=== PATIENT | female | born 1950 | race Caucasian/White ===

== ENCOUNTER 2020-11-16 12:41 | Outpatient (REF) | payer MEDICARE, MEDICAID, SELFPAY ==
--- NOTE | ~2020-11-16 | XR_ITS ---
EXAMINATION: XR KNEE, LEFT CLINICAL INFORMATION: Pain. COMPARISON: None TECHNIQUE: Four views of the left knee. FINDINGS: Moderate degeneration at the patellofemoral articulation and moderate degeneration in the lateral compartment. Joint line lipping is noted. Mild degeneration of the medial compartment. There is no acute fracture or dislocation. The patella appears well seated on the sunrise image. XR/XR knee LT 4V IMPRESSION: Moderate degenerative changes. No acute finding. Probable small effusion is present.
== END 2020-11-16 12:42 | disposition home or self-care (01) ==
LOC: HO.XRAY 12:41
PROVIDERS: PCP Nurse Practitioner Adult Health; Visit Provider Internal Medicine Rheumatology
DX: M19.90 Unspecified osteoarthritis, unspecified site (principal); M89.49 Other hypertrophic osteoarthropathy, multiple sites
CPT/HCPCS: 73564

== ENCOUNTER 2021-12-27 14:51 | Outpatient (REF) | payer MEDICARE, MEDICAID, SELFPAY ==
--- NOTE | ~2021-12-27 | MM_ITS ---
EXAMINATION: BONE DENSITOMETRY CLINICAL INDICATION: Osteoporosis. COMPARISON: Previous BD dated 11/26/2016 and baseline BD dated 06/03/2000. TECHNIQUE: Using a [employer] DXA System (software version: 13.1) manufactured by [employer], dual-energy x-ray absorptiometry was performed of the lumbar spine and left hip. The images are of good technical quality. Summary results are attached. FINDINGS: AP SPINE L1-L2 (excluding L3 and L4): The data of L1-L4 has been changed to exclude the L3 and L4 vertebral bodies, because degenerative changes at these levels may cause overestimation of lumbar spine density. Current: BMD 1.174 g/cm2, Z-score 1.9, T-score 0.1, normal, 0.1% increase from previous, 3.0% increase from baseline (<5% change is not significant). Prior: BMD 1.173 g/cm2. Baseline (available): 12/08/2007: BMD 1.140 g/cm2. LEFT FEMUR, NECK: Current: BMD 0.748 g/cm2, Z-score -0.2, T-score -2.1, osteopenia. Prior: BMD 0.757 g/cm2. Baseline: BMD 0.950 g/cm2. LEFT FEMUR, TOTAL: Current: BMD 0.464 g/cm2, Z-score -2.6, T-score -4.3, osteoporosis, 40.1% decrease from previous, 42.8% decrease from baseline (<5% change is not significant). Prior: BMD 0.774 g/cm2. Baseline: BMD 0.811 g/cm2. IDENTIFIED RISK FACTORS: Menopause, height loss, low calcium intake, rheumatoid arthritis. HISTORY OF FRACTURE: None listed. MEDICATIONS: Vitamin D. MM/XR DEXA axial skeleton IMPRESSION: 1. DIAGNOSIS: Osteoporosis based on the lowest T-score value of -4.3 in the total femur applying World Health Organization criteria. 2. 10-YEAR FRACTURE RISK PREDICTION, FRAX: According to the guidelines, FRAX calculation should only be performed on patients in the osteopenia bone density category. Therefore, FRAX was not performed on this patient. 3. Treatment Recommendations: NOF guidelines recommend consideration for treatment in postmenopausal women and men age 50 and older presenting with the following: -A hip or vertebral (clinical or morphometric) fracture. -T-score less than or equal to -2.5 at the femoral neck or spine after appropriate evaluation to exclude secondary causes. -Low bone mass at the hip or spine and a 10-year fracture probability by FRAX of greater than or equal to 3% for hip fracture or greater than or equal to 20% for major osteoporotic fracture based on the [place] adapted WHO algorithm. 4. Other Recommendations: All treatment decisions require clinical judgment and consideration of individual patient factors, including patient preferences, comorbidities, previous drug use, risk factors not captured in the FRAX model (e.g. frailty, falls, vitamin D deficiency, increased bone turnover, interval significant decline in bone density) and possible under or overestimation of fracture risk by FRAX. Additional medical evaluation for secondary cause of low bone mineral density may be appropriate. FUTURE SCAN RECOMMENDATION: People with diagnosed cases of osteoporosis or at high risk for fracture should have regular bone mineral density tests. For patients eligible for Medicare, routine testing is allowed once every 2 years. The testing frequency can be increased to one year for patients who have rapidly progressing disease, those who are receiving or discontinuing medical therapy to restore bone mass, or have additional risk factors.
== END 2021-12-27 14:52 | disposition home or self-care (01) ==
LOC: HO.MAMMO 14:51
PROVIDERS: Visit Provider Internal Medicine Rheumatology
DX: Z13.820 Encounter for screening for osteoporosis (principal); Z78.0 Asymptomatic menopausal state; M85.80 Other specified disorders of bone density and structure, unspecified site
CPT/HCPCS: 77080

== ENCOUNTER 2023-03-28 10:42 | Day surgery (SDC) | payer MEDICARE, MEDICAID, SELFPAY ==
--- NOTE | 2023-03-27 11:06 | HO.ANESPROP2 ---
Documented by User: Yumi Ulloa NP 03/27/23 11:07 HPI - Anesthesia Eval Consult details Narrative: 72yo F for Colonoscopy PMFSH Past Medical History Medical History Arthritis Thyroid disease GERD (gastroesophageal reflux disease) HTN (hypertension) Surgical History Surgical History History of tonsillectomy Hx of arthroscopic knee surgery H/O colonoscopy Social History Social History Patient Tobacco Use Status: Former Tobacco user Tobacco use type: Cigarette Meds Allergies Allergy/AdvReac Type Severity Reaction Status Date / Time Penicillins Allergy Mild HIVES Unverified 02/03/20 14:40 Sulfa (Sulfonamide Allergy Mild HIVES Unverified 02/03/20 14:40 Antibiotics) [Sulfa (Sulfonamides)] erythromycin base AdvReac Severe SEVERE Unverified 02/03/20 14:40 [Erythromycin Base] ABDOMINAL CRAMPS clindamycin [Clindamycin] AdvReac Mild DEVELOPED Unverified 02/03/20 14:40 C-DIFF Bactrim Allergy Mild Hives Uncoded 03/26/23 14:16 Home Medications Medication Instructions Recorded Confirmed Last Taken Type amlodipine 2.5 mg tablet 2.5 mg PO DAILY 03/26/23 03/26/23 03/28/23 History ergocalciferol (vitamin D2) 1,250 1,250 mcg PO QWEEK 03/26/23 03/26/23 Unknown History mcg (50,000 unit) capsule famotidine 20 mg tablet 20 mg PO BID 03/26/23 03/26/23 Unknown History fluticasone propionate 50 1 spray intranasal BID 03/26/23 03/26/23 Unknown History mcg/actuation nasal spray,suspension hydroxychloroquine 200 mg tablet mg PO 03/26/23 Unknown History levothyroxine 100 mcg tablet 100 mcg PO DAILY 03/26/23 03/26/23 Unknown History mirtazapine 30 mg tablet 30 mg PO BEDTIME 03/26/23 03/26/23 Unknown History olmesartan 40 mg tablet 40 mg PO DAILY 03/26/23 03/26/23 03/28/23 History tramadol 50 mg tablet 50 mg PO TID PRN Pain 03/26/23 03/26/23 Unknown History dicyclomine 20 mg tablet 20 mg PO TID 03/27/23 03/27/23 Unknown History ferrous sulfate 27 mg iron tablet 27 mg PO 3XW 03/27/23 03/27/23 Unknown History hydrocodone 5 mg-acetaminophen 325 1 tab PO Q4H PRN pain 03/27/23 03/27/23 Unknown History mg tablet ranitidine HCl 150 mg capsule 150 mg PO BID 03/27/23 03/27/23 Unknown History Exam Exam Date and Time: March 27, 2023 110 Assessment and Plan Assessment Anesthesia Assessment: Chart Reviewed Documented by User: Dary Montez MD 03/28/23 11:35 PMFSH Past Medical History Medical History Arthritis Thyroid disease GERD (gastroesophageal reflux disease) HTN (hypertension) Surgical History Surgical History History of tonsillectomy Hx of arthroscopic knee surgery H/O colonoscopy History of Problems with Anesthesia: No Social History Social History Patient Tobacco Use Status: Former Tobacco user Tobacco use type: Cigarette Meds Allergies Allergy/AdvReac Type Severity Reaction Status Date / Time Penicillins Allergy Mild HIVES Unverified 02/03/20 14:40 Sulfa (Sulfonamide Allergy Mild HIVES Unverified 02/03/20 14:40 Antibiotics) [Sulfa (Sulfonamides)] erythromycin base AdvReac Severe SEVERE Unverified 02/03/20 14:40 [Erythromycin Base] ABDOMINAL CRAMPS clindamycin [Clindamycin] AdvReac Mild DEVELOPED Unverified 02/03/20 14:40 C-DIFF Bactrim Allergy Mild Hives Uncoded 03/26/23 14:16 Home Medications Medication Instructions Recorded Confirmed Last Taken Type amlodipine 2.5 mg tablet 2.5 mg PO DAILY 03/26/23 03/26/23 03/28/23 History ergocalciferol (vitamin D2) 1,250 1,250 mcg PO QWEEK 03/26/23 03/26/23 Unknown History mcg (50,000 unit) capsule famotidine 20 mg tablet 20 mg PO BID 03/26/23 03/26/23 Unknown History fluticasone propionate 50 1 spray intranasal BID 03/26/23 03/26/23 Unknown History mcg/actuation nasal spray,suspension hydroxychloroquine 200 mg tablet mg PO 03/26/23 Unknown History levothyroxine 100 mcg tablet 100 mcg PO DAILY 03/26/23 03/26/23 Unknown History mirtazapine 30 mg tablet 30 mg PO BEDTIME 03/26/23 03/26/23 Unknown History olmesartan 40 mg tablet 40 mg PO DAILY 03/26/23 03/26/23 03/28/23 History tramadol 50 mg tablet 50 mg PO TID PRN Pain 03/26/23 03/26/23 Unknown History dicyclomine 20 mg tablet 20 mg PO TID 03/27/23 03/27/23 Unknown History ferrous sulfate 27 mg iron tablet 27 mg PO 3XW 03/27/23 03/27/23 Unknown History hydrocodone 5 mg-acetaminophen 325 1 tab PO Q4H PRN pain 03/27/23 03/27/23 Unknown History mg tablet ranitidine HCl 150 mg capsule 150 mg PO BID 03/27/23 03/27/23 Unknown History Exam Airway Mallampati Class: III (small mouth) TM Dist: >3cm Neck ROM: Full Partial: Upper Loose/Missing/Broken Teeth: Yes and Upper Heart: RRR Lungs: CTA Assessment and Plan Assessment Anesthesia Assessment: Anesthesia Plan Discussed Final Anesthetic Review History of Problems with Anesthesia: No NPO: Yes ASA Class: II Final Preanesthetic Review: Meds/Allgs Chart Reviewed, Consent Obtained/Reviewed and Anes Risks/Benef Reviewed Patient Risk: Low Procedure Risk: Low Anesthetic Plan Anesthetic Plan: MAC: Disposition: Standard PACU
[2023-03-28 11:28] VITALS: BMI 22.0
[2023-03-28 11:31] VITALS: BP 110/89; PULSE 87; RESP 16; TEMP 37.2; O2SAT 95
--- NOTE | 2023-03-28 11:32 | MHC.SHP ---
Pre-Procedural Eval Section A Date of Service: 03/28/23 The patient is an INPATIENT: No Changes since office visit: No Cold of Flu in the past 2 weeks, No New Medical Problems, No Changes in Medication and No Patient answered all questions The History & Physical has been completed within 30 days and I have reviewed it.: Yes Section B Chief Complaint: Diarrhea, unspecified Allergies: Allergies Allergy/AdvReac Type Severity Reaction Status Date / Time Penicillins Allergy Mild HIVES Unverified 02/03/20 14:40 Sulfa (Sulfonamide Allergy Mild HIVES Unverified 02/03/20 14:40 Antibiotics) [Sulfa (Sulfonamides)] erythromycin base AdvReac Severe SEVERE Unverified 02/03/20 14:40 [Erythromycin Base] ABDOMINAL CRAMPS clindamycin [Clindamycin] AdvReac Mild DEVELOPED Unverified 02/03/20 14:40 C-DIFF Bactrim Allergy Mild Hives Uncoded 03/26/23 14:16 Plan I have reviewed the history and physical and performed a pertinent physical examination on my patient. No changes have occurred unless specified. Time Spent With Patient Time: Total time managing care of this patient today ____ minutes.
[2023-03-28] MEDS: Lactated Ringers 1,000 ML 100 ML IVCONT (11:53)
--- NOTE | 2023-03-28 12:24 | PM.OP ---
Brief Operative Note Date of Service: 03/28/23 Pre-op diagnosis: diarrhea Post-op diagnosis: same Surgeon: Everton Benson MD Anesthesia: MAC Was an Information Security Consultant used for this Procedure?: No Estimated blood loss (mL): 2 Condition: stable Disposition: PACU
[2023-03-28 12:25] VITALS: BP 89/45; PULSE 73; RESP 18; TEMP 37.2; O2SAT 98
--- NOTE | 2023-03-28 12:40 | OP_ITS ---
DATE OF SERVICE: 03/28/2023 SURGEON: Everton Benson MD INDICATIONS: Personal history of colon polyps and diarrhea. PREOPERATIVE DIAGNOSIS: POSTOPERATIVE DIAGNOSIS: PROCEDURE PERFORMED: Colonoscopy to the terminal ileum with biopsy and snare polypectomy. ESTIMATED BLOOD LOSS: COMPLICATIONS: ANESTHESIA: Monitored anesthesia care. ASSISTANTS: SPECIMENS: DESCRIPTION OF PROCEDURE: History and physical performed. The risks and benefits of the procedure explained to the patient. Informed consent was obtained. The patient was placed in a left lateral decubitus position. A digital rectal exam was performed and was found to be normal. The Olympus pediatric video colonoscope was introduced into the rectum and advanced to the cecum. The cecum was identified by transillumination, palpation, and identification of ileocecal valve. Examination was performed. The scope was removed. She tolerated the procedure well and was taken to the recovery room in stable condition. FINDINGS: The terminal ileum was examined and appeared normal. This was biopsied. The visualized colonic mucosa was within normal limits without evidence of masses or ulcers. There was no sign of colitis. Random biopsies were obtained from the right colon and sigmoid because of the patient's history of diarrhea. A 6 mm polyp at 40 cm was removed with a cold snare and recovered via suction. There was moderate sigmoid diverticulosis. Retroflexed examination showed some moderate-sized internal hemorrhoids. IMPRESSION: 1. Colon polyps. 2. Diarrhea. RECOMMENDATION: Follow up the biopsy results. MD PIYUSH Kessler/LALA / [id number]
== END 2023-03-28 13:25 | disposition home or self-care (01) ==
PROVIDERS: PCP Nurse Practitioner Adult Health; Visit Provider Internal Medicine Gastroenterology
PROC: 0DJD8ZZ Inspection of Lower Intestinal Tract, Via Natural or Artificial Opening Endoscopic (ICD-10-PCS; CPT 45378; principal; 2023-03-28 12:00)
DX: R19.7 Diarrhea, unspecified (principal); K62.5 Hemorrhage of anus and rectum; R15.2 Fecal urgency; Z86.010 Personal history of colon polyps; K63.5 Polyp of colon; I10 Essential (primary) hypertension; E78.00 Pure hypercholesterolemia, unspecified; E03.9 Hypothyroidism, unspecified; M19.90 Unspecified osteoarthritis, unspecified site; Z79.899 Other long term (current) drug therapy; Z88.0 Allergy status to penicillin; Z88.2 Allergy status to sulfonamides; Z88.1 Allergy status to other antibiotic agents; Z87.891 Personal history of nicotine dependence
CPT/HCPCS: 45385; 45380; 88305; J2371; J2704

== ENCOUNTER 2024-12-30 13:19 | Outpatient (REF) | payer MEDICARE, MEDICAID, SELFPAY ==
--- NOTE | ~2024-12-30 | MM_ITS ---
EXAMINATION: DXA BONE DENSITY AXIAL HISTORY: OSTEOPOROSIS TECHNIQUE: [employer] Dual energy absorptiometry (DEXA) of the lumbar spine, total left hip, and femoral neck was performed. COMPARISON: Comparison is made with the prior examination dated 12/27/2021. FINDINGS: The bone mineral density of the lumbar spine is 1.218 g/cm2, corresponding to a T-score of 0.4, and a Z-score of 2.3. This is indicative of normal bone mineral density. This represents a BMD change of 3.7% compared to the prior exam. This is not statistically significant. The bone mineral density of the left total hip is 0.727 g/cm2, corresponding to a T-score of -2.2, and a Z-score of -0.3. This is indicative of osteopenia. This represents a BMD change of 56.7% compared to the prior exam. This is statistically significant. The bone mineral density of the left femoral neck is 1.128 g/cm2, corresponding to a T-score of 0.4, and a Z-score of 2.3. This is indicative of normal bone mineral density. This represents a BMD change of 3.7% compared to the prior exam. MM/XR DEXA axial skeleton IMPRESSION: Based on bone mineral density, and according to World Health Organization (WHO) criteria, the diagnosis is consistent with osteopenia. Statistically, 68% of repeat scans fall within 1 SD (+/- 0.010 g/cm2 for AP spine L1-L4) and 1 SD (+/- 0.012 g/cm2 for femur total) FRAX is a trademark of the [employer] [place] [employer], a World Health Organization (WHO) Collaborating Center. Electronically signed by: Cuong Ca MD 12/30/2024 02:13 PM EDT
--- OUTSIDE RECORDS SUMMARY | 2024-12-30 14:12 | XMS_ITS | Clinical Summary ---
Author Organization [facility] Address [address] [place] [address] Care Team Providers Care Grievance Coordinator Name Role Phone Unavailable Primary Care Provider Unavailabl e Source Comments PLEASE NOTE, if this patient is a minor, it may be UNLAWFUL to discuss sensitive information that is contained in these records (such as FAMILY PLANNING, MENTAL HEALTH or SUBSTANCE ABUSE) with the minor patient's parent or other person without the patient's specific authorization.[facility] Allergies Active Allergy Reactions Criticality Noted Date Comments Amoxicillin 05/30/2021 Clindamycin 05/30/2021 Penicillins 05/30/2021 Sulfa (Sulfonamide Antibiotics) 05/19 Medications No known medications Active Problems Problem Noted Date Diagnosed Date Arthritis 11/26/2021 High blood pressure 11/26/2021 Encounters Date Type Department Care Team Description 12/24/2024 11:00 AM EDT Office Visit [facility] [address] [place] [phone] Janette Wilson DDS from Last 3 Months Social History Tobacco Use Types Packs/Day Years Used Date Smoking Tobacco: Never Passive Smoke Exposure: Never Smokeless Tobacco: Never Tobacco Cessation:Counseling Given: Not Answered Social Connections Answer Date Recorded Connectedness 0 01/29/2024 Financial Resource Strain Answer Date R ecorded Financial Resource Strain 0 2021 Stress Answer Date Recorded Stress 0 10/11/2021 Physical Activity Answer Date Recorded Physical Activity 0 10/11/2021 Food Insecurity Answer Date Recorded Food 0 02/12/2024 Transportation Needs Answer Date Record ed Transportation 0 10/11/2021 Housing Stability Answer Date Recorded Housing 0 10/11/2021 Safety and Environment Answer Date Jc rded Safety 0 10/11/2021 Utilities Answer Date Recorded Utilities 0 10/11/2021 Employment Answer Date Recorded Stress 0 01/29/2024 Comments Unknown Sex and Gender Information Value Date Recorded Sex Assigned at Not on file Legal Sex Female 8:48 AM PDT Gender Identity Female 12/27/2024 7:41 AM PDT Sexual Orientation Straight 12/27/2024 7: 41 AM PDT Last Filed Vital Signs Vital Sign Reading Time Taken Comments Blood Pressure 125/94 12/24/2024 10:59 AM EDT Pulse 86 12/24/2024 10:59 AM EDT Temperature - - Respiratory Rate - - Oxygen Saturation - - Inhaled Oxygen Concentration - - Weight - - Height - - Body Mass Index - - Plan of Treatment Upcoming Encounters Date Type Department Care Team (Late st Contact Info) Description 12/30/2024 3:40 PM EDT Office Visit [facility] [address] [place] [phone] Janette Wilson, DDS [address] [place] [address] 01/06/2025 1:00 PM EDT Office Visit [facility] [address] [place] [phone] Fifi Stroud [address] [place] [address] Health Maintenance Due Date Last Done Comments Dental FMX/Pano 1950 Hepatitis C Screening 1950 Imm-DTaP/Tdap/Td (1 - Tdap) 1967 Imm-Zoster, Recombinant (1 of 2) 1998 Bone Density Screening 2013 Falls Prevention 2013 Imm-Pneumococcal 50+ (2 of 2 - PCV) 06/19/2016 06/19/2015 Imm-RSV (adult) (1 - 1-dose 75+ series) 2023 [id number] ( - season) 2024 06/02/2021, 10/04/2020, 09/06/2020 Alcohol and Drug Screen 05/19/2024 Depression Annual Screen 05/19/2024 Dental Perio Charting 07/05/2024 07/03/2023, 023 Tobacco Screening 12/31/2024 01/01/2024 Dental BW 01/02/2025 01/01/2024 Dental Examination 01/02/2025 01/01/2024, 0 07/03/2023, 09/23/2022 Dental Prophy 01/02/2025 01/01/2024, 06/19, 09/23/2022, Additional history exists Imm-Influenza (#1) 2025 02/27/2017, 04/05/2016 Procedures Procedure Name Priority Date/Time Associated Diagnosis Comments BITEWINGS - FOUR RADIOGRAPHIC IMAGES Routine 01/01/2024 11:00 AM EDT Caries of enamel (incipient) Caries Encounter for dental examination and cleaning with abnormal findings PROPHYLAXIS - ADULT Routine 01/01/2024 1 1:00 AM EDT Caries of enamel (incipient) Caries Encounter for dental examination and cleaning with abnormal findings PERIODIC ORAL EVALUATION ESTABLISHED PATIENT Routine 01/01/2024 11:00 AM EDT Caries of enamel (incipient) Caries Encounter for dental examination and cleaning with abnormal findings COMP PERIODONTAL EVALUATION - NEW/EST PATIENT Routine 07/03/2023 2:20 PM EST Encounter for dental examination from Last 3 Months or Most Recently Relevant to Health Maintenance Insurance [employer] NET DENTAL
--- OUTSIDE RECORDS SUMMARY | 2024-12-30 14:12 | XMS_ITS | Clinical Summary ---
Author Organization [facility] Address [address] [place] [id number] Phone Care Team Providers Care Web Marketing Strategist Name Role Phone Jazmine Sunshine NP Primary Care Provider + Magy Hawk MD Unavailable [phone] Allergies Active Allergy Reactions Criticality Noted Date Comments Clindamycin Hcl 02/27/2017 Other reaction(s): Unknown Erythromycin 02/27/2017 Other reaction(s): Unknown Escitalopram Oxalate Diarrhea 12/10/2019 Penicillin G Sodium 02/27/2017 Other reaction(s): Unknown Sulfa (Sulfonamide Antibiotics) 02/27/2017 Other reaction(s): Unknown Sertraline Diarrhea 12/10/2019 Medications levothyroxine (SYNTHROID, LEVOTHROID) 100 MCG tablet Take 100 mcg by mouth daily. Active famotidine (PEPCID) 20 MG tabletIndications :duodenal ulcer Take 20 mg by mouth daily. Indications: an ulcer of the duodenum Active ferrous gluconate 256 mg (28 mg elemental) Tab Take 256 mg by mouth daily with breakfast. Active traMADoL (ULTRAM) 50 mg tablet Take 50 mg by mouth every 8 (eight) hours as needed. Active MIRTAZAPINE ORAL Take 45 mg by mouth nightly at bedtime. Active amLODIPine (NORVASC) 5 MG tablet Take 5 mg by mouth daily. 3 Active cholecalciferol (VITAMIN D3) 25 MCG (1,000 unit) tablet Take 3,000 Units by mouth daily. Active calcium carb/vitamin D3/vit K1 (CALCIUM SOFT CHEW ORAL) Take by mouth daily. Active hydroxychloroquin e (PLAQUENIL) 200 mg tabletIndications :Inflammatory arthritis TAKE 1 TABLET BY MOUTH EVERY DAY IN THE MORNING AND HALF A TABLET IN THE AFTERNOON DIRECTED 135 tablet 3 5 Active PROLIA 60 mg/mL Syrg subcutaneous syringeIndication s:Age-related osteoporosis without current pathological fracture INJECT 1 SYRINGE UNDER THE SKIN ONCE EVERY 6 MONTHS 1 mL 1 5 Active Active Problems Problem Noted Date Diagnosed Date Skin rash 10/28/2024 Assessment & Plan (10/28/2024 1:15 PM EDT): Apply moisturizer after taking shower and if not better consider formal dermatologic checkup Hematoma of right hand 09/10/2023 Assessment & Plan (09/10/2023 1:43 PM EDT): Procedure: After an informed oral consent, under sterile conditions using Ethyl chloride spray for local anesthesia I have aspirated a drop of blood from Right carpus dorsal hematoma uneventfully. Details of post-procedure care were explained to the patient in the office and given in writing. Provider: Magy Hawk MD Patient: Wendy Lopez : 1950 Date: 09/10/2023 Hypomagnesemia 09/10/2023 Assessment & Plan (10/28/2024 1:14 PM EDT): She is monitoring it periodically and makes sure to provide enough magnesium rich food products. Assessment & Plan (01/12/2024 11:18 AM EDT): She is monitoring it periodically and makes sure to provide enough magnesium rich food products. Assessment & Plan (09/13/2023 8:56 PM EDT): She is thankful for my attention to low serum magnesium in April 2023 that saved my life . She is monitoring it periodically and makes sure to provide enough magnesium rich food products-see details in instruction sheet with today's date. Varicose veins of both legs with edema 3 Assessment & Plan (10/28/2024 12:02 PM EDT): I reviewed with her the proper way of putting supporting stockings on first thing in the morning before taking legs off the bed and sent prescription for another pair. Assessment & Plan (01/08/2024 1:08 PM EDT): I reviewed with her the proper way of putting supporting stockings on first thing in the morning before taking legs off the bed and sent prescription for another pair. Assessment & Plan (09/10/2023 1:13 PM EDT): I reviewed with her the proper way of putting supporting stockings on first thing in the morning before taking legs off the bed and sent prescription for another pair. Assessment & Plan (05/08/2023 11:39 AM EST): I reviewed with her the proper way of putting supporting stockings on first thing in the morning before taking legs off the bed and sent prescription for another pair. Age-related osteoporosis wit hout current pathological fracture 08/21/2022 Assessment & Plan (10/28/2024 1:14 PM EDT): Due to documented osteoporosis with left total femur T score -4.3 she would benefit from bone preventing therapy in addition to proper calcium and vitamin D supplementation and daily weightbearing exercises. I provided her with pamphlet on Prolia administered subcutaneously every 6 months in view of her heartburn requiring Pepcid twice daily. She found out that her insurance covers only 80% of the cost for Prolia and she could not afford the remaining 20% of the cost. She got financial assistance from pharmaceutical [employer] producing Prolia as suggested by one of her friends and received her 1st subcutaneous 60 mg Prolia dose on prior visit on 10/14/2023 uneventfully. She got 2nd every 6 months subcutaneous Prolia dose on 04/28/2024 by the nurse uneventfully. Today she is ready for the 3rd every 6 months Prolia dose: Procedure: After an informed oral consent, under sterile I have injected 60 mg Prolia SUBCUTANEOUSLY into LEFT ARM uneventfully. Details of post-procedure care were explained to the patient in the office and given in writing. Provider: Magy Hawk MD Patient: Wendy Lopez : 1950 Date: 10/28/2024 PATIENT OWN MEDICATION Assessment & Plan (05/28/2024 11:07 AM EST): Due to documented osteoporosis with left total femur T score -4.3 she would benefit from bone preventing therapy in addition to proper calcium and vitamin D supplementation and daily weightbearing exercises. I provided her with pamphlet on Prolia administered subcutaneously every 6 months in view of her heartburn requiring Pepcid twice daily. She found out that her insurance covers only 80% of the cost for Prolia and she could not afford the remaining 20% of the cost. She got financial assistance from [employer] producing Prolia as suggested by one of her friends and received her 1st subcutaneous 60 mg Prolia dose on prior visit on 10/14/2023 uneventfully. She got 2nd every 6 months subcutaneous Prolia dose on 04/28/2024 by the nurse uneventfully. Assessment & Plan (01/12/2024 11:17 AM EDT): Due to documented osteoporosis with left total femur T score -4.3 she would benefit from bone preventing therapy in addition to proper calcium and vitamin D supplementation and daily weightbearing exercises. I provided her with pamphlet on Prolia administered subcutaneously every 6 months in view of her heartburn requiring Pepcid twice daily. She found out that her insurance covers only 80% of the cost for Prolia and she could not afford the remaining 20% of the cost. She got financial assistance from [employer] producing Prolia as suggested by one of her friends and received her 1st subcutaneous 60 mg Prolia dose on prior visit on 10/14/2023 uneventfully. She is due for the 2nd every 6 months subcutaneous Prolia dose on 04/16/2024. Assessment & Plan (09/13/2023 8:54 PM EDT): Due to documented osteoporosis with left total femur T score -4.3 she would benefit from bone preventing therapy in addition to proper calcium and vitamin D supplementation and daily weightbearing exercises. I provided her with pamphlet on Prolia administered subcutaneously every 6 months in view of her heartburn requiring Pepcid twice daily. She found out that her insurance covers only 80% of the cost for Prolia and she could not afford the remaining 20% of the cost. Today she requested another Rx of Prolia hoping to get financial assistance from [employer] producing Prolia as suggested by one of her friends. Assessment & Plan (05/08/2023 11:42 AM EST): Due to documented osteoporosis with left total femur T score -4.3 she would benefit from bone preventing therapy in addition to proper calcium and vitamin D supplementation and daily weightbearing exercises. I provided her with pamphlet on Prolia administered subcutaneously every 6 months in view of her heartburn requiring Pepcid twice daily. She found out that her insurance covers only 80% of the cost for Prolia and she could not afford the remaining 20% of the cost. I again provided her with an alternative of infused IV Reclast (zoledronic acid) every 12 months to consider again today as she still hesitates realizing that the longer she waits the week or the bones are and greater risk of nontraumatic/spontaneous bony fractures. Assessment & Plan (12/26/2022 11:53 AM EDT): Due to documented osteoporosis with left total femur T score -4.3 she would benefit from bone preventing therapy in addition to proper calcium and vitamin D supplementation and daily weightbearing exercises. I provided her with pamphlet on Prolia administered subcutaneously every 6 months in view of her heartburn requiring Pepcid twice daily. She found out that her insurance covers only 80% of the cost for Prolia and she could not afford the remaining 20% of the cost. At today's visit I provided her with an alternative of infused IV Reclast (zoledronic acid) every 12 months to consider -see details in patient instructions regarding possible side effects on it that we reviewed briefly in the office today. Assessment & Plan (09/08/2022 2:41 PM EDT): Due to documented osteoporosis with left total femur T score -4.3 she would benefit from bone preventing therapy in addition to proper calcium and vitamin D supplementation and daily weightbearing exercises. I provided her with pamphlet on Prolia administered subcutaneously every 6 months in view of her heartburn requiring Pepcid twice daily. Gastroesophageal reflux dise ase with esophagitis without hemorrhage 05/31/2021 Assessment & Plan (10/28/2024 11:43 AM EDT): Avoid late, large, spicy meals. Keep headboard elevated at 45 angle for nighttime. Continue Pepcid twice daily Assessment & Plan (05/28/2024 10:42 AM EST): Avoid late, large, spicy meals. Keep headboard elevated at 45 angle for nighttime. Continue Pepcid twice daily Assessment & Plan (01/08/2024 1:08 PM EDT): Avoid late, large, spicy meals. Keep headboard elevated at 45 angle for nighttime. Continue Pepcid twice daily Assessment & Plan (09/10/2023 1:02 PM EDT): Avoid late, large, spicy meals. Keep headboard elevated at 45 angle for nighttime. Continue Pepcid twice daily Assessment & Plan (05/08/2023 11:40 AM EST): Avoid late, large, spicy meals. Keep headboard elevated at 45 angle for nighttime. Continue Pepcid twice daily Assessment & Plan (12/26/2022 11:52 AM EDT): Avoid late, large, spicy meals. Keep headboard elevated at 45 angle for nighttime. Carefully continue Pepcid 20 mg twice daily as prescribed. Assessment & Plan (09/08/2022 2:41 PM EDT): Avoid late, large, spicy meals. Keep headboard elevated at 45 angle for nighttime. Carefully continue Pepcid 20 mg twice daily. Assessment & Plan (01/03/2022 12:11 PM EDT): Avoid late, large, spicy meals. Keep headboard elevated at 45 angle for nighttime. Carefully continue Pepcid 20 mg twice daily as prescribed. Assessment & Plan (09/09/2021 5:15 PM EDT): Avoid late, large, spicy meals. Keep headboard elevated at 45 angle for nighttime. Carefully continue Pepcid 20 mg twice daily as prescribed. Assessment & Plan (05/31/2021 11:28 AM EST): Avoid late, large, spicy meals. Keep headboard elevated at 45 angle for nighttime. Primary osteoarthritis of left knee 12/01/2020 Assessment & Plan (02/02/2021 1:16 PM EDT): Procedure: After an informed oral consent, under sterile conditions using Ethyl chloride spray for local anesthesia I have injected 16 mg Synvisc into Left knee from infero- mediall approach uneventfully. Details of post-procedure care were explained to the patient in the office and given in writing. Provider: Magy Hawk MD Patient: Wendy Lopez : 1950 Date: 02/02/2021 OFFICE SUPPLY Assessment & Plan (02/04/2021 5:39 PM EDT): Procedure: After an informed oral consent, under sterile conditions using Ethyl chloride spray for local anesthesia I have injected 16 mg Synvisc into Left knee from lateral approach uneventfully. Details of post-procedure care were explained to the patient in the office and given in writing. Provider: Magy Hawk MD Patient: Wendy Lopez : 1950 Date: 01/26/2021 OFFICE SUPPLY Assessment & Plan (01/19/2021 4:21 PM EDT): Procedure: After an informed oral consent, under sterile conditions using Ethyl chloride spray for local anesthesia I have injected 1st vial of 16 mg Synvisc into Left knee from medial approach uneventfully. Details of post-procedure care were explained to the patient in the office and given in writing. Provider: Magy Hawk MD Patient: Wendy Lopez : 1950 Date: 01/19/2021 Assessment & Plan (12/05/2020 10:38 AM EDT): Joint protection, energy conservation. Gentle, regular exercise routine. Avoid falls, injuries, overuse. Keep body weight in ideal range for her height. She may benefit from topical cream such as Arnica, Biofreeze, Aspercreme versus medicated patches such as salonpas, icy hot patch 2-3 times daily and if necessary at bedtime x 3 weeks. On her request I am putting prescription for Synvisc that worked great for her right knee in the past. Advice given about COVID-19 virus infection 03/20 Assessment & Plan (08/29/2020 3:38 PM EDT): I reviewed with her need for ongoing social distancing, wearing facial mask and diligent hand hygiene. I have encouraged her to schedule COVID-19 vaccine that appears safe and highly efficacious in preventing COVID-19 infection and its complications. I have reassured her that based on her history I do not see contraindications to get COVID-19 vaccine. Assessment & Plan (04/14/2020 10:34 AM EST): Continue social distancing, wearing facial mask and diligent hand hygiene. I explained to Wendy crucial role of yearly vaccination against influenza this year comparing to other years due to possible concomitant infection with COVID-19 if not protected by available vaccine. Long-term use of Plaquenil 10/03/2017 Assessment & Plan (10/28/2024 1:11 PM EDT): Daily sun protection. Regular eye checkups as scheduled-she has signed medical records release of Retinologist evaluation by Dr. Bradford. Ophthalmology checkup from 07/23/[address] Ruiz free of Plaquenil toxicity. Assessment & Plan (05/28/2024 10:42 AM EST): Daily sun protection. Regular eye checkups as scheduled-she has signed medical records release of most recent evaluation in August 2023. Assessment & Plan (01/08/2024 1:08 PM EDT): Daily sun protection. Regular eye checkups as scheduled-she has signed medical records release of most recent evaluation in August 2023. Assessment & Plan (09/13/2023 8:52 PM EDT): Daily sun protection. Regular eye checkups as scheduled-she has signed medical records release of most recent evaluation in August 2023. Assessment & Plan (05/08/2023 11:40 AM EST): Daily sun protection. Regular eye checkups as scheduled-she is due now in August 2023.. Assessment & Plan (12/26/2022 11:00 AM EDT): Daily sun protection. Regular eye checkups as scheduled. Assessment & Plan (08/21/2022 3:42 PM EDT): Daily sun protection. Regular eye checkups as scheduled. Assessment & Plan (01/03/2022 12:11 PM EDT): Daily sun protection. Regular eye checkups as scheduled. Assessment & Plan (08/30/2021 11:58 AM EDT): Daily sun protection. Regular eye checkups as scheduled. Assessment & Plan (05/31/2021 11:28 AM EST): Daily sun protection. Regular eye checkups as scheduled. Assessment & Plan (11/16/2020 11:23 AM EDT): Daily sun protection. Regular eye checkups as scheduled. Assessment & Plan (08/17/2020 2:50 PM EDT): Daily sun protection. Regular eye checkups as scheduled. Assessment & Plan (04/06/2020 1:47 PM EST): Daily sun protection. Regular eye checkups as scheduled. Assessment & Plan (12/10/2019 2:22 PM EDT): Daily sun protection. Regular eye checkups as scheduled. Assessment & Plan (07/16/2019 4:06 PM EST): Daily sun protection. Regular eye checkups as scheduled. Assessment & Plan (09/05/2018 10:18 PM EDT): Daily sun protection. Regular eye checkups as scheduled. Inflammatory arthritis 05/30/2017 Assessment & Plan (10/28/2024 11:43 AM EDT): Clinically and laboratory [facility] she appears stable. Based on her current weight 60 kg she is ok to carefully continue Plaquenil 300 mg daily (60 x 5 mg/ir=837 mg/day). Continue proper hydration. Well-balanced nutritionally diet. Gentle, regular exercise routine as tolerated. Avoid sick contacts, falls, injuries, overuse. Get labs prior to next visit - standing orders in [facility]. Assessment & Plan (05/28/2024 10:41 AM EST): Clinically and laboratory [facility] she appears stable. Based on her current weight 60 kg she is ok to carefully continue Plaquenil 300 mg daily (60 x 5 mg/wg=621 mg/day). Continue proper hydration. Well-balanced nutritionally diet. Gentle, regular exercise routine as tolerated. Avoid sick contacts, falls, injuries, overuse. Get labs prior to next visit - standing orders in [facility]. Assessment & Plan (01/12/2024 11:15 AM EDT): Clinically and laboratory [facility] she appears stable. Based on her current weight 60 kg she is ok to carefully continue Plaquenil 300 mg daily (60 x 5 mg/en=619 mg/day). Continue proper hydration. Well-balanced nutritionally diet. Gentle, regular exercise routine as tolerated. Avoid sick contacts, falls, injuries, overuse. Get labs prior to next visit - standing orders in [facility]. Assessment & Plan (09/13/2023 8:51 PM EDT): Clinically and laboratory [facility] she appears stable. Based on her current weight 59 kg she is ok to carefully continue Plaquenil 300 mg daily (59 x 5 mg/kg-295/day. Continue proper hydration. Well-balanced nutritionally diet. Gentle, regular exercise routine as tolerated. Avoid sick contacts, falls, injuries, overuse. Get labs prior to next visit in mths-standing orders in [facility]. Call if worse or with questions On her request I agreed to aspirate a small lump on Right carpal dorsum: Procedure: After an informed oral consent, under sterile conditions using Ethyl chloride spray for local anesthesia I have aspirated a drop of blood from Right carpus dorsal hematoma uneventfully. Details of post-procedure care were explained to the patient in the office and given in writing. Provider: Magy Hawk MD Patient: Wendy Lopez : 1950 Date: 09/10/2023 Assessment & Plan (05/08/2023 11:01 AM EST): Ok to carefully continue Plaquenil 300 mg daily . Proper hydration. Well-balanced nutritionally diet. Gentle, regular exercise routine as tolerated. Avoid sick contacts, falls, injuries, overuse. Get labs prior to next visit in 4 mths-standing orders in [facility]. Call if worse or with questions Assessment & Plan (12/26/2022 10:59 AM EDT): Ok to carefully continue Plaquenil 300 mg daily . Proper hydration. Well-balanced nutritionally diet. Gentle, regular exercise routine as tolerated. Avoid sick contacts, falls, injuries, overuse. Get labs prior to next visit in 4 mths-standing orders in [facility]. Call if worse or with questions Assessment & Plan (09/08/2022 2:39 PM EDT): Ok to carefully continue Plaquenil 300 mg daily . Proper hydration. Well-balanced nutritionally diet. Gentle, regular exercise routine as tolerated. Avoid sick contacts, falls, injuries, overuse. Get labs prior to next visit in 4 mths-standing orders in [facility]. Call if worse or with questions Assessment & Plan (01/03/2022 12:04 PM EDT): Ok to carefully continue Plaquenil 200 mg twice daily alternating every other day with once daily as long as no worsening. Proper hydration. Well-balanced nutritionally diet. Gentle, regular exercise routine as tolerated. Avoid sick contacts, falls, injuries, overuse. Get labs today and prior to next visit in 4 mths-standing orders in [facility]. Call if worse or with questions Assessment & Plan (09/09/2021 5:14 PM EDT): Ok to carefully continue Plaquenil 200 mg twice daily alternating every other day with once daily as long as no worsening. Proper hydration. Well-balanced nutritionally diet. Gentle, regular exercise routine as tolerated. Avoid sick contacts, falls, injuries, overuse. Get labs today and prior to next visit in 4 mths-standing orders in [facility]. Call if worse or with questions Assessment & Plan (06/02/2021 9:16 PM EST): Ok to carefully reduce.Plaquenil from 200 mg twice daily to alternating 200 mg twice daily alternating every other day with once daily. Proper hydration. Well-balanced nutritionally diet. Gentle, regular exercise routine as tolerated. Avoid sick contacts, falls, injuries, overuse. Get labs prior to next visit in 3 mths-standing orders in [facility]. Call if worse or with questions Assessment & Plan (12/01/2020 12:20 PM EDT): Ok to carefully reduce.Plaquenil from 200 mg twice daily to alternating 200 mg twice daily alternating every other day with once daily. Proper hydration. Well-balanced nutritionally diet. Gentle, regular exercise routine as tolerated. Avoid sick contacts, falls, injuries, overuse. Get labs today and prior to next visit in 3 mths-standing orders in [facility]. Call if worse or with questions Assessment & Plan (11/25/2020 12:19 PM EDT): Ok to carefully reduce.Plaquenil from 200 mg twice daily to alternating 200 mg twice daily alternating every other day with once daily. Proper hydration. Well-balanced nutritionally diet. Gentle, regular exercise routine as tolerated. Avoid sick contacts, falls, injuries, overuse. Get labs today and prior to next visit in 3 mths-standing orders in [facility]. Call if worse or with questions Assessment & Plan (08/17/2020 2:48 PM EDT): Ok to carefully reduce.Plaquenil from 200 mg twice daily to alternating 200 mg twice daily alternating every other day with once daily. Proper hydration. Well-balanced nutritionally diet. Gentle, regular exercise routine as tolerated. Avoid sick contacts, falls, injuries, overuse. Get labs prior to next visit in 3 mths Call if worse or with questions Assessment & Plan (04/06/2020 1:46 PM EST): Ok to carefully reduce.Plaquenil from 200 mg twice daily to alternating 200 mg twice daily alternating every other day with once daily. Proper hydration. Well-balanced nutritionally diet. Gentle, regular exercise routine as tolerated. Avoid sick contacts, falls, injuries, overuse. Get yearly influenza vaccine [facility]. Get labs prior to next visit in 3 mths Call if worse or with questions Assessment & Plan (12/12/2019 10:03 PM EDT): Ok to carefully reduce.Plaquenil from 200 mg twice daily to alternating 200 mg twice daily alternating every other day with once daily. Proper hydration. Well-balanced nutritionally diet. Gentle, regular exercise routine as tolerated. Avoid sick contacts, falls, injuries, overuse. Get yearly influenza vaccine by February 2020. Get labs prior to next visit in 3 mths Call if worse or with questions Assessment & Plan (07/30/2019 10:02 AM EDT): Ok to carefully reduce.Plaquenil from 200 mg twice daily to alternating 200 mg twice daily alternating every other day with once daily. Proper hydration. Well-balanced nutritionally diet. Gentle, regular exercise routine as tolerated. Avoid sick contacts, falls, injuries, overuse. Get labs prior To next visit in 3 mths Call if worse or with questions Assessment & Plan (09/05/2018 10:16 PM EDT): Get monitoring labs today. Carefully continue current medications. Proper hydration. Well-balanced nutritionally diet. Gentle, regular exercise routine as tolerated. Avoid sick contacts, falls, injuries, overuse. Chronic bilateral low back pain without sciatica 05/30/2017 Primary osteoarthritis involving multiple joints 05/30/2017 Assessment & Plan (10/28/2024 11:43 AM EDT): Joint protection, energy conservation. Avoid falls, injuries, overuse. Use assistive devices and splints as needed. Topical cream versus patch as needed. Pamphlet on Cymbalta provided as an alternative to Zoloft that took joint pain away but gave her diarrhea. Call if worse or with questions. Assessment & Plan (05/28/2024 10:41 AM EST): Joint protection, energy conservation. Avoid falls, injuries, overuse. Use assistive devices and splints as needed. Topical cream versus patch as needed. Pamphlet on Cymbalta provided as an alternative to Zoloft that took joint pain away but gave her diarrhea. Call if worse or with questions. Assessment & Plan (01/08/2024 1:07 PM EDT): Joint protection, energy conservation. Avoid falls, injuries, overuse. Use assistive devices and splints as needed. Topical cream versus patch as needed. Pamphlet on Cymbalta provided as an alternative to Zoloft that took joint pain away but gave her diarrhea. Call if worse or with questions. Assessment & Plan (09/10/2023 1:01 PM EDT): Joint protection, energy conservation. Avoid falls, injuries, overuse. Use assistive devices and splints as needed. Topical cream versus patch as needed. Pamphlet on Cymbalta provided as an alternative to Zoloft that took joint pain away but gave her diarrhea. Call if worse or with questions. Assessment & Plan (05/08/2023 11:01 AM EST): Joint protection, energy conservation. Avoid falls, injuries, overuse. Use assistive devices and splints as needed. Topical cream versus patch as needed. Pamphlet on Cymbalta provided as an alternative to Zoloft that took joint pain away but gave her diarrhea. Call if worse or with questions. Assessment & Plan (12/26/2022 10:59 AM EDT): Joint protection, energy conservation. Avoid falls, injuries, overuse. Use assistive devices and splints as needed. Topical cream versus patch as needed. Pamphlet on Cymbalta provided as an alternative to Zoloft that took joint pain away but gave her diarrhea. Call if worse or with questions. Assessment & Plan (08/21/2022 3:41 PM EDT): Joint protection, energy conservation. Avoid falls, injuries, overuse. Use assistive devices and splints as needed. Topical cream versus patch as needed. Pamphlet on Cymbalta provided as an alternative to Zoloft that took joint pain away but gave her diarrhea. Call if worse or with questions. Assessment & Plan (01/03/2022 12:05 PM EDT): Joint protection, energy conservation. Avoid falls, injuries, overuse. Use assistive devices and splints as needed. Topical cream versus patch as needed. Pamphlet on Cymbalta provided as an alternative to Zoloft that took joint pain away but gave her diarrhea. Call if worse or with questions. Assessment & Plan (08/30/2021 11:57 AM EDT): Joint protection, energy conservation. Avoid falls, injuries, overuse. Use assistive devices and splints as needed. Topical cream versus patch as needed. Pamphlet on Cymbalta provided as an alternative to Zoloft that took joint pain away but gave her diarrhea. Call if worse or with questions. Assessment & Plan (05/31/2021 11:27 AM EST): Joint protection, energy conservation. Avoid falls, injuries, overuse. Use assistive devices and splints as needed. Topical cream versus patch as needed. Pamphlet on Cymbalta provided as an alternative to Zoloft that took joint pain away but gave her diarrhea. Call if worse or with questions. Assessment & Plan (11/16/2020 11:22 AM EDT): Joint protection, energy conservation. Avoid falls, injuries, overuse. Use assistive devices and splints as needed. Topical cream versus patch as needed. Pamphlet on Cymbalta provided as an alternative to Zoloft that took joint pain away but gave her diarrhea. Call if worse or with questions. Assessment & Plan (08/29/2020 3:35 PM EDT): Joint protection, energy conservation. Avoid falls, injuries, overuse. Use assistive devices and splints as needed. Topical cream versus patch as needed. Pamphlet on Cymbalta provided as an alternative to Zoloft that took joint pain away but gave her diarrhea. Call if worse or with questions. Assessment & Plan (04/06/2020 1:45 PM EST): Joint protection, energy conservation. Avoid falls, injuries, overuse. Use assistive devices and splints as needed. Topical cream versus patch as needed. Pamphlet on Cymbalta provided as an alternative to Zoloft that took joint pain away that gave her diarrhea. Call if worse or with questions. Assessment & Plan (12/12/2019 10:05 PM EDT): Joint protection, energy conservation. Avoid falls, injuries, overuse. Use assistive devices and splints as needed. Topical cream versus patch as needed. Pamphlet on Cymbalta provided as an alternative to Zoloft that took joint pain away that gave her diarrhea. Call if worse or with questions. Assessment & Plan (07/16/2019 4:04 PM EST): Joint protection, energy conservation. Avoid falls, injuries, overuse. Use assistive devices and splints as needed. Topical cream versus patch as needed. Call if worse or with questions. Assessment & Plan (09/05/2018 10:16 PM EDT): Joint protection, energy conservation. Avoid falls, injuries, overuse. Use assistive devices and splints as needed. Topical cream versus patch as needed. Call if worse or with questions. Vitamin D insufficiency 05/30/2017 Assessment & Plan (12/26/2022 11:01 AM EDT): Continue proper supplementation as prescribed. Assessment & Plan (08/21/2022 3:42 PM EDT): Continue proper supplementation as prescribed. Assessment & Plan (01/03/2022 12:12 PM EDT): Continue proper supplementation as prescribed. Assessment & Plan (08/30/2021 11:58 AM EDT): Continue proper supplementation as prescribed. Assessment & Plan (05/31/2021 11:29 AM EST): Continue proper supplementation as prescribed. Assessment & Plan (12/01/2020 12:21 PM EDT): Continue proper supplementation as prescribed. Assessment & Plan (11/16/2020 11:22 AM EDT): Continue proper supplementation as prescribed. Assessment & Plan (08/17/2020 2:48 PM EDT): Continue proper supplementation as prescribed. Assessment & Plan (04/06/2020 1:46 PM EST): Continue proper supplementation as prescribed. Assessment & Plan (12/10/2019 2:20 PM EDT): Continue proper supplementation as prescribed. Assessment & Plan (07/16/2019 4:07 PM EST): Continue proper supplementation as prescribed. Assessment & Plan (09/05/2018 10:15 PM EDT): Continue proper supplementation as prescribed. 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 Build up regular exercise routine up to the goal of 30-45 minutes daily. Monitor for increasing shortness of breath, reduced respiratory drive, increasing constipation Assessment & Plan (08/21/2022 4:01 PM EDT): Take exactly as prescribed, try to limit frequency by employing non-for pharmacologic measures such as topical creams, warm packs, patches, regular relaxation/mediation/positive imagery sessions etc. Build up regular exercise routine up to the goal of 30-45 minutes daily. Monitor for increasing shortness of breath, reduced respiratory drive, increasing constipation Assessment & Plan (08/30/2021 11:57 AM EDT): Take exactly as prescribed, try to limit frequency by employing non-for pharmacologic measures such as topical creams, warm packs, patches, regular relaxation/mediation/positive imagery sessions etc. Build up regular exercise routine up to the goal of 30-45 minutes daily. Monitor for increasing shortness of breath, reduced respiratory drive, increasing constipation Assessment & Plan (11/16/2020 11:23 AM EDT): Take exactly as prescribed, try to limit frequency by employing non-for pharmacologic measures such as topical creams, warm packs, patches, regular relaxation/mediation/positive imagery sessions etc. Build up regular exercise routine up to the goal of 30-45 minutes daily. Monitor for increasing shortness of breath, reduced respiratory drive, increasing constipation Assessment & Plan (08/17/2020 2:50 PM EDT): Take exactly as prescribed, try to limit frequency by employing non-for pharmacologic measures such as topical creams, warm packs, patches, regular relaxation/mediation/positive imagery sessions etc. Build up regular exercise routine up to the goal of 30-45 minutes daily. Monitor for increasing shortness of breath, reduced respiratory drive, increasing constipation Assessment & Plan (04/06/2020 1:47 PM EST): Take exactly as prescribed, try to limit frequency by employing non-for pharmacologic measures such as topical creams, warm packs, patches, regular relaxation/mediation/positive imagery sessions etc. Build up regular exercise routine up to the goal of 30-45 minutes daily. Monitor for increasing shortness of breath, reduced respiratory drive, increasing constipation Assessment & Plan (12/10/2019 2:21 PM EDT): Take exactly as prescribed, try to limit frequency by employing non-for pharmacologic measures such as topical creams, warm packs, patches, regular relaxation/mediation/positive imagery sessions etc. Build up regular exercise routine up to the goal of 30-45 minutes daily. Monitor for increasing shortness of breath, reduced respiratory drive, increasing constipation Assessment & Plan (07/16/2019 4:05 PM EST): Monitor for increasing sleepiness, reduced response rate, reduced respiratory drive, constipation. Keep medication in a safe place to prevent loss or left. Assessment & Plan (09/05/2018 10:17 PM EDT): Monitor for increasing sleepiness, reduced response rate, reduced respiratory drive, constipation. Keep medication in a safe place to prevent loss or left. Osteopenia of multiple sites 05/30/2017 08/21/2022 Assessment & Plan (01/22/2022 7:21 PM EDT): Due to recently detected left femoral bone osteoporosis with T score -4.3 on 12/27/2021 BMD at [facility] she needs bone preserving therapy. Once dental work completed re-start weekly alendronate as prescribed versus alternatives: Oral Actonel, oral versus IV Boniva, IV Reclast or SC every 6 months Prolia- pamphlets printed today. Proper calcium and vitamin D supplementation. Fall and fracture prevention strategies. Daily weightbearing exercises. Call if worse or with questions. Assessment & Plan (08/30/2021 11:58 AM EDT): Once dental work completed re-start weekly alendronate as prescribed. Proper calcium and vitamin D supplementation. Fall and fracture prevention strategies. Daily weightbearing exercises. Call if worse or with questions. Assessment & Plan (05/31/2021 11:28 AM EST): Once dental work completed re-start weekly alendronate as prescribed. Proper calcium and vitamin D supplementation. Fall and fracture prevention strategies. Daily weightbearing exercises. Call if worse or with questions. Assessment & Plan (11/25/2020 12:21 PM EDT): Once dental work completed re-start weekly alendronate as prescribed. Proper calcium and vitamin D supplementation. Fall and fracture prevention strategies. Daily weightbearing exercises. Call if worse or with questions. Assessment & Plan (08/29/2020 3:36 PM EDT): Continue weekly alendronate every as prescribed. Proper calcium and vitamin D supplementation. Fall and fracture prevention strategies. Daily weightbearing exercises. Call if worse or with questions. Assessment & Plan (04/06/2020 1:46 PM EST): Continue weekly alendronate every day as prescribed. Joint protection, energy conservation. Avoid falls, injuries, overuse. Use assistive devices and splints as needed. Topical cream versus patch as needed. Call if worse or with questions. Assessment & Plan (12/10/2019 2:21 PM EDT): Continue weekly alendronate every day as prescribed. Joint protection, energy conservation. Avoid falls, injuries, overuse. Use assistive devices and splints as needed. Topical cream versus patch as needed. Call if worse or with questions. Assessment & Plan (07/16/2019 4:06 PM EST): Continue weekly alendronate every as prescribed. Joint protection, energy conservation. Avoid falls, injuries, overuse. Use assistive devices and splints as needed. Topical cream versus patch as needed. Call if worse or with questions. Assessment & Plan (09/05/2018 10:17 PM EDT): Continue weekly alendronate every as prescribed. Joint protection, energy conservation. Avoid falls, injuries, overuse. Use assistive devices and splints as needed. Topical cream versus patch as needed. Call if worse or with questions. 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 05/30/2017 06/03/2017 Encounters Date Type Department Care Team Description 11/12/2024 11:33 AM EDT - 11/12/2024 11:59 PM EDT Hospital Encounter [facility] [address] [place] [address] Magy Hawk MD Discharge Disposition: Home or Self Care 10/28/2024 11:30 AM EDT Office Visit [facility] [address] [place] [address] Magy Hawk MD Inflammatory arthritis (Primary Dx); Primary osteoarthritis involving multiple joints; Long-term use of Plaquenil; Gastroesophageal reflux disease with esophagitis without hemorrhage; Age-related osteoporosis without current pathological fracture; Varicose veins of both legs with edema; Skin rash; Hypomagnesemia 10/27/2024 10:59 AM EDT - 10/27/2024 11:59 PM EDT Hospital Encounter [facility] [address] [place] [id number] Magy Hawk MD Discharge Disposition: Home or Self Care 10/26/2024 Telephone [facility] [address] [place] [address] [place] [address] Zenobia Flores CMA 10/04/2024 Refill [facility] [address] [place] [address] [place] [address] Magy Hawk MD Medication Refill 10/02/2024 Refill [facility] [address] [place] [address] [place] [address] Magy Hawk MD Medication Refill from Last 3 Months Immunizations Immunization Administration Dates Next Due COVID-19 (Pre-03/10) Moderna Vaccine, mRNA, PF 0 10/04/2020,09/06/2020 Influenza Quadrivalent Preservative Free IM 02/16 Family History Medical History Relation Comments Stroke Father Heart attack Mother Crohn's disease Son Relation Status Comments Father Mother Son Alive Social History Tobacco Use Types Packs/Day Years Used Date Smoking Tobacco: Former Cigarettes Q uit: 2000 Smokeless Tobacco: Never Alcohol Use Standard Drinks/Week Comments Yes 0 (1 standard drink = 0.6 oz pur e alcohol) Couple times per year Education Answer Date Recorded Are you interested in more education? Not on jazzmine e 09/13/2022 Are you concerned about learning? Not on file 09/13/2022 No 09/13/2022 No 09/13/2022 Digital Access Answer Date Recorded No 10/12/2022 No 10/12/2022 Reliable internet access at home? Not on file 10/12/2022 Device with a working camera? Not on file Intimate Partner Violence Answer Date R ecorded Are you denied basic needs s uch as food, clothing, or medical care? No 05/08/2023 In the past 12 months have y ou been in a relationship with a person who hurts, threatens, or tries to control you? No 05/08/2023 Are you denied basic needs s uch as food, clothing, or medical care? No 05/08/2023 In the past 12 months have y ou been in a relationship with a person who hurts, threatens, or tries to control you? No 05/08/2023 Comments Unknown Sex and Gender Information Value Date Recorded Sex Assigned at Not on file Legal Sex Female 10:05 PM EDT Gender Identity Not on file Sexual Orientation Not on file Last Filed Vital Signs Vital Sign Reading Time Taken Comments Blood Pressure 130/64 10/28/2024 11:26 AM EDT Pulse 76 10/28/2024 11:26 AM EDT Temperature 36.6 C (97.9 F) 05/08/2023 8:19 PM EST Respiratory Rate 17 05/08/2023 11:00 PM EST Oxygen Saturation 99% 10/28/2024 11:26 AM EDT Inhaled Oxygen Concentration - - Weight 64.4 kg (142 lb) 10/28/2024 11:26 AM EDT with shoes Height 163.8 cm (5' 4.49 ) 10/28/2024 11:26 AM E DT Body Mass Index 24.01 10/28/2024 11:26 AM EDT Plan of Treatment Upcoming Encounters Date Type Department Care Team (Late st Contact Info) Description 03/02/2025 1:00 PM EDT Office Visit [facility] [address] [place] [address] [place] [address] Magy Hawk MD [address] [place] [address], [address] [address] 05/02/2025 11:30 AM EST Nurse Only [facility] [address] [place] [address] [place] [address] Magy Hawk MD [address] [place] [address], [address] [place] [address] Health Maintenance Due Date Last Done Comments Adult Td,Tdap Booster 1948 LIPID PANEL 1948 TSH LEVEL 1948 DEPRESSION SCREENING 1960 HEPATITIS C SCREENING 1966 ZOSTER VACCINES (1 of 2) 1998 OSTEOPOROSIS SCREENING INITI AL (ONE-TIME) 2013 PNEUMOCOCCAL VACCINES (50+ years) (2 of 2 - PCV) 06/19/2016 06/19/2015 RSV VACCINE (1 - 1-dose 75+ series) 2023 COVID-19 VACCINE (4 - 2023-2 5 season) 2024 06/02/2021, 10/04/2020, 09/06/2020 SMOKING Hx and SMOKELESS TOBACCO SCREENING 10/28/2025 10/28/2024 HEPATITIS A VACCINES Aged Out No long er eligible based on patient's age to complete this topic HIB VACCINES Aged Out No longer eligi ble based on patient's age to complete this topic MENINGOCOCCAL VACCINES (ACWY) Aged Out No longer eligible based on patient's age to complete this topic MENINGOCOCCAL VACCINES (B) Aged Out N o longer eligible based on patient's age to complete this topic Medical Devices Not on file Procedures Procedure Name Priority Date/Time Associated Diagnosis Comments COMPREHENSIVE METABOLIC PANEL Routine 11/12/2024 11:33 AM EDT Inflammatory arthritis Long-term use of Plaquenil Age-related osteoporosis without current pathological fracture C-REACTIVE PROTEIN Routine 11/12/2024 11 :33 AM EDT Inflammatory arthritis Long-term use of Plaquenil Age-related osteoporosis without current pathological fracture SEDIMENTATION RATE (ESR) Routine 11/12/2024 11:33 AM EDT Inflammatory arthritis Long-term use of Plaquenil Age-related osteoporosis without current pathological fracture CBC AND DIFFERENTIAL Routine 11/12/2024 11:33 AM EDT Inflammatory arthritis Long-term use of Plaquenil Age-related osteoporosis without current pathological fracture MAGNESIUM Routine 10/27/2024 10:59 AM EDT COMPREHENSIVE METABOLIC PANEL Routine 10/27/2024 10:59 AM EDT Age-related osteoporosis without current pathological fracture from Last 3 Months Results * (ABNORMAL) Comprehensive metabolic panel (11/12/2024 11:33 AM EDT) Only the most recent of2 resultswithin the time period is included. SODIUM 141 133 - 146 mmol/L [facility] POTASSIUM 4.9 3.3 - 5.1 mmol/L [facility] CHLORIDE 106 96 - 108 mmol/L [facility] CO2 27 21 - 35 mmol/L [facility] BUN 11 6 - 19 mg/dL [facility] CREATININE 0.80 0.5 - 1.5 mg/dL [facility] GLUCOSE 102(H) 70 - 99 mg/dL [facility] ALBUMIN 4.3 3.9 - 4.8 g/dL [facility] TOTAL PROTEIN 6.9 6.5 - 8.0 g/dL [facility] CALCIUM 9.3 8.4 - 10.3 mg/dL [facility] ALKALINE PHOSPHATASE 66 39 - 117 U/L [facility] TOTAL BILIRUBIN <0.2 0.0 - 1.2 mg/dL [facility] AST 24 0 - 37 U/L [facility] ALT 11 0 - 40 U/L [facility] GLOBULIN 2.6 1 - 4.8 g/dL [facility] EGFR 76 >59 mL/min/1.7 3m2 [facility] Comment:Estimated glomerular filtration rate calculated using the CKD-EPI refit equation. ANION GAP 13 10 - 20 mmol/L [facility] Blood 11/12/2024 11:3 3 AM EDT 11/12/2024 11:36 AM EDT us Magy Hawk MD LAB BLOOD ORDERABLES Fin al Result [facility] [address] [place] [address] * Sedimentation rate (ESR) (11/12/2024 11:33 AM EDT) ESR 11 0 - 30 mm/h [facility] Blood 11/12/2024 11:3 3 AM EDT 11/12/2024 11:36 AM EDT us Magy Hawk MD LAB BLOOD ORDERABLES Fin al Result [facility] [address] [place] [address] * (ABNORMAL) CBC and differential (11/12/2024 11:33 AM EDT) WBC 5.97 4.00 - 11.00 K/uL [facility] RBC 5.04 4.00 - 5.20 M/uL [facility] HGB 14.2 12.0 - 16.0 g/dL [facility] HCT 44.7 36.0 - 46.0 % [facility] PLT 227 150 - 450 K/uL [facility] MCV 88.7 80.0 - 100.0 fL [facility] MCH 28.2 27.0 - 31.0 pg [facility] MCHC 31.8(L) 32.0 - 36.0 g/dL [facility] RDW 13.8 11.5 - 14.5 % [facility] MPV 9.7 8.4 - 12.0 fL [facility] NRBC 0.00 0.00 /100 WBCs [facility] ABSOLUTE NRBC 0.00 0.00 K/uL [facility] DIFF METHOD Auto [facility] NEUTS 47.6(L) 48.0 - 76.0 % [facility] LYMPHS 31.7 18.0 - 41.0 % [facility] MONOS 9.0 4.0 - 11.0 % [facility] EOS 10.9(H) 0.0 - 5.0 % [facility] BASOS 0.5 0.0 - 1.5 % [facility] Granulocytes, immature (%) 0.3 0.0 - 0.9 % [facility] ABSOLUTE NEUTS 2.84 1.92 - 7.60 K/uL [facility] ABSOLUTE LYMPHS 1.89 0.72 - 4.10 K/uL [facility] ABSOLUTE MONOS 0.54 0.16 - 1.10 K/uL [facility] ABSOLUTE EOS 0.65(H) 0.00 - 0.50 K/uL [facility] ABSOLUTE BASOS 0.03 0.00 - 0.15 K/uL [facility] Granulocytes, immature 0.02 0.00 - 0.09 K/uL [facility] Blood 11/12/2024 11:3 3 AM EDT 11/12/2024 11:36 AM EDT us Magy Hawk MD LAB BLOOD ORDERABLES Fin al Result Performing Organization Address City/[facility]/ZIP Co de Phone Number [address] [address] * C-Reactive Protein (11/12/2024 11:33 AM EDT) C REACTIVE PROTEIN <3.0 0.0 - 4.0 mg/L [facility] Blood 11/12/2024 11:3 3 AM EDT 11/12/2024 11:36 AM EDT us Magy Hawk MD LAB BLOOD ORDERABLES Fin al Result Performing Organization Address [facility]/ZIP Co de Phone Number [address] [address] * Magnesium (10/27/2024 10:59 AM EDT) MAGNESIUM 2.0 1.6 - 2.6 mg/dL [facility] 10/27/2024 10:5 9 AM EDT 10/27/2024 11:03 AM EDT us Magy Hawk MD LAB BLOOD ORDERABLES Fin al Result Performing Organization Address City/[facility]/ZIP Co de Phone Number [address] [address] from Last 3 Months Insurance MEDICARE PART A & [facility] B MEDICARE PART A & B MEDICARE PART A & B Member Subscriber Plan / Payer (Ef fective 2013-Present) Name:Wendy Lopez Member ID:[id number] Relation to Subscriber:Self Name:Wendy Lopez Subscriber ID:[id number] Payer ID:[id number] Group ID:Not on file Type:Medicare Address: [employer] [address] A & B MEDICARE PART A & B Member Subscriber Plan / Payer (Ef fective 2013-Present) Name:Wendy Lopez Member ID:[id number] Relation to Subscriber:Self Name:Wendy Lopez Subscriber ID:[id number] Payer ID:[id number] Group ID:Not on file Type:Medicare Address: [employer] [address] [place] [id number] [place], [place] [address] [address] MEDICARE PART A & B Member Subscriber Plan / Payer (Ef fective 2013-Present) Name:Wendy Lopez Member ID:[id number] Relation to Subscriber:Self Name:Wendy Lopez Subscriber ID:[id number] Payer ID:[id number] Group ID:Not on file Type:Medicare Address: [employer] [address] [employer] B MEDICARE PART A & B [facility] Care Teams Web Marketing Strategist Relationship Specialty Start Date End Date Jazmine Sunshine NP [address] [place] [phone] PCP - General 03/06/17 Magy Hawk MD [address] [facility] [address] [place] [address] [email or web address] Historical LMR Provider 03/06/17 Additional Source Comments The information contained in this document represents components of the legal health record. It is not the complete legal health record.[facility]
--- OUTSIDE RECORDS SUMMARY | 2024-12-30 14:12 | XMS_ITS | Patient Health Record ---
Author Organization [facility] Address [address] [place] [address] Care Team Providers Care Inspector Packer Name Role Phone Jong MAYERS, Jazmine Primary Care Provider Everton Dhillon Jr Allergies Allergen (clinical drug ingredient) Drug/Non Drug Allergy documented on EMR Reaction Allergy Type Onset Date Status most antibiotics (uncoded) Unknown Allergy Active Reason For Referral No Information Medications Medication SIG (Take, Route, Frequency, Duration) Notes Start Date End Date Status Diphenoxylate-Atropine 2.5-0.025 MG 1 tablet as needed for diarrhea Orally Four times a day for 30 days 03/28/2023 Active Ondansetron HCl 4 MG 1 tablet Orally Onc e a day for 30 day(s) 04/09/2023 Active Dicyclomine HCl 20 MG 1 tablet Orally 2- 4 times a day 06/16/2014 Active Levothyroxine Sodium 100 MCG 1 tablet Or ally Once a day Active Losartan Potassium 50 MG 1 tablet Orally Once a day Active Hydroxychloroquine Sulfate 2 00 MG 1 tablet with food or milk Orally Once a day Active Vitamin D (Ergocalciferol) 41216 UNIT 1 capsule Orally Active traMADol HCl 50 MG 1 tablet as needed Orally every 6 hrs Active Ypeezbgcgyg-IPLY-Fizwvsm Prod Orally Active HYDROcodone-Acetaminophen 5-325 MG 1 tablet as needed Orally every 6 hrs Active Ranitidine HCl 150 MG 1 capsule Orally T wice a day Active Iron 28 MG 1 tablet Orally Thre e times a Week for 30 day(s) Active Anusol-HC 25 MG 1 suppository Rectal Twice a day for 14 day(s) 08/31/2014 Active Vitamin D 50 MCG (1999 UT) 1 tablet Oral ly Once a day for 30 day(s) Active amLODIPine Besy-Benazepril H Cl 2.5-10 MG as directed Orally Active Immunizations Vaccine Route Administration Date Status Comme nts Influenza Unknown 03/12/2023 Refused Problems Problem Type SNOMED Code ICD Code Onset Dates Problem Status W/U Status Risk Notes Problem 50822624 Rectal bleeding (K62.5) Active confirmed Problem 891023154 Personal history of colonic polyps (Z86.010) Active confirmed Problem 63017511 Diarrhea, unspecified type (R19.7) Active confirmed Plan Of Treatment Future Test Test Name Order Date COLONOSCOPY 06/16/2014 COLONOSCOPY 03/12/2023 Insurance Providers Payer Name Payer Address Payer Phone Subscriber Number Group Number Insured Name Patient Relationship to Insured Coverage Start Date Coverage End Date MEDICARE OF [place] [address] [place] [address] [id number] IVETTE CYR Self - patient is the insured MEDICAID OF [facility] [address] [place] [address] [id number] IVETTE CYR Self - patient is the insured Medical (General) History Medical History History ICD Code diverticulosis Hypothyroidism hypercholesterolemia hypertension Arthritis Surgical History Surgery Date(Month/Year) tonsillectomy knee surgery-right
== END 2024-12-30 13:20 | disposition home or self-care (01) ==
LOC: HO.MAMMO 13:19
PROVIDERS: Visit Provider Internal Medicine Rheumatology
DX: M81.0 Age-related osteoporosis without current pathological fracture (principal)
CPT/HCPCS: 77080

== ENCOUNTER → 2024-12-30 13:30 | Outpatient (BNV) | payer MEDICARE, MEDICAID, SELFPAY | PROVIDERS: Visit Provider Radiology Diagnostic Radiology | DX: E28.39 Other primary ovarian failure (principal) | CPT/HCPCS: 77080 ==